=== PATIENT | female | born 1950 | race African-American/Black ===

== ENCOUNTER 2016-04-14 14:22 | Emergency (ER) | payer OTHER ==
[~2016-04-14] VITALS: Ht 157.5 cm; Wt 76.5 kg
[~2016-04-14 14:22] MED LIST: ACIP20TA19 PO; ASPI81TA11 OR; CYCL5TAB PO; GLUCTAB PO; HYDR-3533 PO; HYDR12.56 PO; LISI-363 PO; PRAV40TA2
[2016-04-14 14:34] VITALS: BP 136/78; PULSE 92; RESP 16; TEMP 98.6; O2SAT 97
[2016-04-14] MEDS ORDERED: LISI-515 PO (15:29)
[2016-04-14] MEDS ORDERED: OMEP20TA PO (15:29)
[2016-04-14] MEDS ORDERED: METF-382 PO (15:29)
[2016-04-14] MEDS ORDERED: ASPI1TAB69 PO (15:29)
[2016-04-14] MEDS ORDERED: HYDR12.56 PO (15:29)
[2016-04-14] MEDS ORDERED: PRAV40TA2 PO (15:29)
[2016-04-14] MEDS ORDERED: IBUPROFEN 800 MG TAB PO ONE (15:30)
--- NOTE | 2016-04-14 15:32 | PD ---
HPI Chief Complaint: Pain: Acute or Chronic Time Seen by Provider: 15:30 Travel History International Travel<30 days: No Contact w/Intl Traveler<30days: No Traveled to known affect area: No History of Present Illness HPI Patient is a 65-year-old female who presents to the emergency for evaluation of right foot pain. Patient states the pain is been ongoing for 2 days. She denies any defining injury or trauma but states she is on her feet all day. Patient states the pain is 6 out of 10 and describes it as sore. She states the pain radiates from her toes to her mid foot dorsally. She denies any fevers , chills, redness, warmth. She does state that her foot is swollen and tender to the touch. PFSH Past Medical History Hx Anticoagulant Therapy: No Heart Rhythm Problems: No Cardiac Catheterization: No High Cholesterol: Yes Congestive Heart Failure: No Diabetes: Yes Patient Takes Glucophage: Yes Diminished Hearing: No GERD: Yes Heparin Induced Thrombocytopen: No Hypertension: Yes Musculoskeletal: Yes (OSTEOPOROSIS) Tetanus Vaccination: Unknown ?: Not : 2 Para: 2 Past Surgical History Appendectomy: Yes Section: Yes Coronary Artery Bypass Graft: No Hysterectomy: Yes Family History Family Myocardial Infarction: Yes Social History Alcohol Use: No Tobacco Use: No Substance Use: No Allergies-Medications (Allergen,Severity, Reaction): Coded Allergies: Sulfa (Verified Allergy, Mild, ITCHING, 04/14/16) Reported Meds & Prescriptions Reported Meds & Active Scripts Active Reported Pravastatin 40 Mg Tab 40 Mg PO DAILY Metformin ER (Metformin HCl) 1,000 Mg Jeison 1,000 Mg PO DAILY With evening meal Hydrochlorothiazide 12.5 Mg Tab 12.5 Mg PO DAILY Lisinopril 20 Mg Tab 20 Mg PO DAILY Omeprazole 20 Mg Tab 20 Mg PO DAILY Aspirin 81 Mg Tabdr 81 Mg PO DAILY Review of Systems Except as stated in HPI: all other systems reviewed are Neg Musculoskeletal: Positive: Myalgias, Arthralgias, Edema, Pain Physical Exam Narrative GENERAL: Well-nourished, well-developed patient. SKIN: Warm and dry. HEAD: Normocephalic. EYES: No scleral icterus. No injection or drainage. NECK: Supple, trachea midline. No JVD or lymphadenopathy. CARDIOVASCULAR: Regular rate and rhythm without murmurs, gallops, or rubs. RESPIRATORY: Breath sounds equal bilaterally. No accessory muscle use. GASTROINTESTINAL: Abdomen soft, non-tender, nondistended. MUSCULOSKELETAL: No cyanosis, edema noted to the dorsal aspect of the right foot from the toes to the mid foot. Full range of motion in right foot and toes. Positive pedal pulses, brisk less than 3 second capillary refill. No obvious deformities noted. No warmth or erythema noted. BACK: Nontender without obvious deformity. No CVA tenderness. Data Data Last Documented VS Vital Signs Date Time Temp Pulse Resp B/P Pulse Ox O2 Delivery O2 Flow Rate FiO2 04/14/16 14:34 98.6 92 16 136/78 97 Orders Foot, Complete ([id number]) (04/14/16 ) Ibuprofen (Motrin) (04/14/16 15:30) [facility] Medical Decision Making Medical Screen Exam Complete: Yes Emergency Medical Condition: Yes Interpretation(s) Vital Signs Date Time Temp Pulse Resp B/P Pulse Ox O2 Delivery O2 Flow Rate FiO2 04/14/16 14:34 98.6 92 16 136/78 97 Differential Diagnosis Gouty arthropathy versus arthritis versus strain versus sprain versus other Narrative Course Patient is a 65 year old female who presented to emergency for evaluation of right foot pain. Patient had no injury or trauma, there is mild edema noted over the dorsal aspect. Patient is neurovascularly intact. Imaging ordered rule out acute abnormality. Patient has been ambulating on her foot, imaging is negative or acute fracture or dislocation, but does show hypertrophic changes. She will be given anti-inflammatory medication. She is encouraged to follow-up with her primary doctor. She is occurs return to emergency department for any new or worsening symptoms. Patient is stable for discharge. Diagnosis Primary Impression: Strain of foot Qualified Code: S96.911A - Strain of foot, right, initial encounter Referrals: Primary Care Physician Patient Instructions: General Instructions, Muscle Strain (ED) Additional Instructions: Follow-up with your primary doctor Take medications as directed Alternate heat and ice to affected area, elevate extremity Med/Other Pt SpecificInfo: Prescription(s) given Scripts Ibuprofen 600 Mg [id number] Mg PO Q8HR PRN (PAIN) 10 Days Ref 0 Prov:Sumi Middleton 04/14/16 Disposition: 01 DISCHARGE HOME Condition: Stable Sumi Middleton Apr 14, 2016 15:32
--- NOTE | 2016-04-14 16:55 | RADHPO ---
EXAM DATE/TIME: 04/14/2016 16:10 [facility] COMPARISON: No previous studies available for comparison. INDICATIONS : Right foot pain and swelling, no known injury MEDICAL HISTORY : Diabetes mellitus type II. SURGICAL HISTORY : None. ENCOUNTER: Initial ACUITY: 2 days PAIN SCORE: 8/10 LOCATION: Right foot FINDINGS: No fracture is seen. There is very prominent hypertrophic change at the posterior calcaneus at the A chilles attachment site. There is a smaller calcaneal spur at the plantar aponeurosis attachment sit e. There is hypertrophic change at the dorsal midfoot between the navicular bone and the cuneiform b ones. There is some hypertrophic change seen adjacent to the lateral aspect of the cuboid. CONCLUSION: Very prominent hypertrophic change. Basilio Brown MD on April 14, 2016 at 16:23 Board Certified Radiologist. This report was verified electronically.
[2016-04-14] MEDS ORDERED: IBUP-232 PO (17:01)
== END 2016-04-14 17:44 | disposition home or self-care (01) ==
LOC: PHEFT 14:22
DX: S96.911A Strain of unspecified muscle and tendon at ankle and foot level, right foot, initial encounter (principal); R60.0 Localized edema; I10 Essential (primary) hypertension; E11.9 Type 2 diabetes mellitus without complications; E78.00 Pure hypercholesterolemia, unspecified; Z79.84 Long term (current) use of oral hypoglycemic drugs; Z87.19 Personal history of other diseases of the digestive system; Z87.39 Personal history of other diseases of the musculoskeletal system and connective tissue
CPT/HCPCS: 73630; 99283

== ENCOUNTER 2016-07-01 22:16 | Emergency (ER) | payer OTHER ==
[~2016-07-01] VITALS: Ht 170.2 cm; Wt 76.0 kg
[~2016-07-01 22:16] MED LIST changes: -ACIP20TA19 PO; +ASPI1TAB69 PO; -ASPI81TA11 OR; -CYCL5TAB PO; -GLUCTAB PO; -HYDR-3533 PO; +IBUP-232 PO; -LISI-363 PO; +LISI-515 PO; +METF-382 PO; +OMEP20TA PO; -PRAV40TA2; +PRAV40TA2 PO
[2016-07-01 22:19] VITALS: BP 182/82; PULSE 100; RESP 16; TEMP 98; O2SAT 98
[2016-07-02] MEDS ORDERED: PROPARACAINE HCL 0.5% OPHT SOLN 15 ML BTL LEFT EYE ONE (00:15)
[2016-07-02] MEDS ORDERED: POLYMYXIN/TRIMETHOPRIM OPHT SOLN 10 ML BTL LEFT EYE ONE (00:30)
[2016-07-02] MEDS ORDERED: GUAISYP4 PO (00:42)
[2016-07-02] MEDS ORDERED: ZITHTAB PO (00:42)
--- NOTE | 2016-07-02 00:53 | PD ---
HPI Chief Complaint: left eye redness and drainage Time Seen by Provider: 23:49 Travel History International Travel<30 days: No Contact w/Intl Traveler<30days: No Traveled to known affect area: No History of Present Illness HPI This is a 66-year-old female history of hypertension, who presents today for complaints of red eye and drainage from her left eye. The patient works in our operating room and was told to come down here and be evaluated for possible pinkeye. The patient denies any foreign body but does state that became itchy 2 days ago and then she's noticed that the eye has become red and has purulent drainage. She denies any fevers, chills. She was noted to have elevated blood pressure but denies any headache, dizziness, chest pain, chest pressure. Patient also reports she's had upper respiratory infection for which she wanted to see her primary care doctor but has not as of yet. She reports postnasal drainage with cough and congestion she reports productive cough with yellow- green phlegm. PFSH Past Medical History Medical History: Denies Significant Hx Hx Anticoagulant Therapy: No Heart Rhythm Problems: No Cardiac Catheterization: No High Cholesterol: Yes Congestive Heart Failure: No Diabetes: Yes Patient Takes Glucophage: Yes Diminished Hearing: No GERD: Yes Heparin Induced Thrombocytopen: No Hypertension: Yes Musculoskeletal: Yes (OSTEOPOROSIS) : 2 Para: 2 Past Surgical History Appendectomy: Yes Section: Yes Coronary Artery Bypass Graft: No Hysterectomy: Yes Family History Family Myocardial Infarction: Yes Social History Alcohol Use: No Tobacco Use: No Substance Use: No Allergies-Medications (Allergen,Severity, Reaction): Coded Allergies: Sulfa (Verified Allergy, Mild, ITCHING, 04/14/16) Reported Meds & Prescriptions Reported Meds & Active Scripts Active Zithromax Z-Hiren (Azithromycin) 250 Mg Dspk 250 Mg PO DIRECTED 500 MG (2 tabs) day 1, then 1 tab days 2-5. Guaifenesin AC Liq (Guaifenesin-Codeine Liq) 100-10 Mg/5 Ml Syrp 10 Ml PO Q6H PRN Ibuprofen 600 Mg Tab 600 Mg PO Q8HR PRN 10 Days Reported Pravastatin 40 Mg Tab 40 Mg PO DAILY Metformin ER (Metformin HCl) 1,000 Mg Jeison 1,000 Mg PO DAILY With evening meal Hydrochlorothiazide 12.5 Mg Tab 12.5 Mg PO DAILY Lisinopril 20 Mg Tab 20 Mg PO DAILY Omeprazole 20 Mg Tab 20 Mg PO DAILY Aspirin 81 Mg Tabdr 81 Mg PO DAILY Review of Systems Except as stated in HPI: all other systems reviewed are Neg General / Constitutional: No: Fever, Chills Eyes: Positive: Drainage (left eye drainage and redness) HENT: No: Headaches, Lightheadedness, Neck Pain Cardiovascular: No: Chest Pain or Discomfort, Palpitations, Irregular Rhythm Respiratory: Positive: Cough (productive yellow-green), No: Shortness of Breath, Wheezing Gastrointestinal: No: Nausea, Vomiting Genitourinary: No: Urgency, Frequency, Dysuria Physical Exam Narrative GENERAL: Well-developed well-nourished female in no acute respiratory distress. HEAD: Atraumatic. Normocephalic. EYES: Pupils equal and round. Left eye shows redness in the conjunctiva. There is some purulent white drainage noted in the corners of the eyes. On fluorescein staining, there is no uptake or evidence of abrasion. Right eye was clear without redness or drainage. ENT: No nasal bleeding or discharge. Mucous membranes pink and moist. NECK: Trachea midline. No JVD. Supple CARDIOVASCULAR: Regular rate and rhythm. No murmur appreciated. RESPIRATORY: No accessory muscle use. Breath sounds equal with coarse rhonchi in the upper airways bilaterally. No Rales appreciated. NEUROLOGICAL: Awake and alert. No obvious cranial nerve deficits. Motor grossly within normal limits. Normal speech. Data Data Last Documented VS Vital Signs Date Time Temp Pulse Resp B/P Pulse Ox O2 Delivery O2 Flow Rate FiO2 07/01/16 22:19 98.0 100 16 182/82 98 Orders Proparacaine 0.5% Opth Soln (Alcaine 0.5 (07/02/16 00:15) Polymyxin/Trimethop Opht Soln (Polytrim (07/02/16 00:30) Guaifenesin Liq (Robitussin Liq) (07/02/16 01:00) [facility] [place] Medical Decision Making Medical Screen Exam Complete: Yes Emergency Medical Condition: Yes Differential Diagnosis Viral versus bacterial conjunctivitis. Bronchitis Narrative Course 66 year old female who works here at [employer] was sent down for evaluation of left eye drainage and redness. The patient appears to have conjunctivitis. She'll be treated with polymyxin drops. She also be given 1 dose of cough Anacin. She'll be given a prescription for guaifenesin for the cough. She also be given a prescription for azithromycin for bronchitis. She is instructed not to return to work until the redness and drainage resolves. Diagnosis Primary Impression: Conjunctivitis, left eye Additional Impression: Bronchitis Additional Instructions: Do not return to work until the redness and drainage has resolved from the eye. Keep an eye on her blood pressure and if it continues to say elevated, follow up with her primary care physician. Eyedrops 1 drop to left eye every 6 hours 7 days. Scripts Azithromycin (Zithromax Z-Hiren)250 Mg [id number] Mg PO DIRECTED #1 DSPK Ref 0 500 MG (2 tabs) day 1, then 1 tab days 2-5. Prov:Wisam Basurto MD 07/02/16 Guaifenesin-Codeine Liq (Guaifenesin AC Liq)100-10 Mg/5 Ml Syrp10 Ml PO Q6H PRN (COUGH) #1 BOTTLE Ref 0 Prov:Wisam Basurto MD 07/02/16 Disposition: 01 DISCHARGE HOME Condition: Stable Wisam Basurto MD Jul 02, 2016 00:53
[2016-07-02] MEDS ORDERED: guaiFENesin SOLUTION 200 MG/10 ML CUP PO ONE (01:00)
== END 2016-07-02 01:35 | disposition home or self-care (01) ==
LOC: NEPE 22:16
DX: H10.9 Unspecified conjunctivitis (principal); J40 Bronchitis, not specified as acute or chronic
CPT/HCPCS: 99283

== ENCOUNTER → 2016-10-11 | Outpatient (CLI) | payer OTHER ==
[~2016-10-11] MED LIST changes: +GUAISYP4 PO; +ZITHTAB PO
[2016-10-11 07:11] LABS: HEMATOCRIT 34.5 % (35.0-46.0); MEAN CORPUSCULAR HEMOGLOBIN 25.6 PG (27.0-34.0); MEAN CORPUSCULAR HGB CONC 32.9 % (32.0-36.0); PLATELET COUNT 249 TH/MM3 (150-450); RED BLOOD COUNT 4.42 MIL/MM3 (4.00-5.30); RED CELL DISTRIBUTION WIDTH 15.9 % (11.6-17.2); REVIEW FLAG FINAL; WHITE BLOOD COUNT 6.7 TH/MM3 (4.0-11.0)
[2016-10-11 07:35] LABS: ANION GAP 8 MEQ/L (5-15); AST (GOT) 20 U/L (15-37); BICARBONATE 28.4 MEQ/L (21.0-32.0); BLOOD UREA NITROGEN 23 MG/DL (7-18); CHLORIDE 103 MEQ/L (98-107); GLOMERULAR FILTRATION RATE 99 ML/MIN (>89); GLUCOSE,FASTING 92 MG/DL (74-99); POTASSIUM 3.6 MEQ/L (3.5-5.1); SODIUM (NA) 139 MEQ/L (136-145)
[2016-10-11 07:36] LABS: ALT (GPT) 26 U/L (10-53)
[2016-10-11 07:45] LABS: ALKALINE PHOSPHATASE 160 U/L (45-117); HDL CHOLESTEROL 47.1 MG/DL (40.0-60.0); LDL CHOLESTEROL 122 MG/DL (0-99); TOTAL BILIRUBIN ADULT 0.3 MG/DL (0.2-1.0)
[2016-10-11 16:19] LABS: HEMOGLOBIN A1a 1.3 %; HEMOGLOBIN A1b 1.1 %; HEMOGLOBIN F 1.4 %; HEMOGLOBIN P3 4.3 %
== END ==
LOC: CLAB 06:47
PROVIDERS: ATTEND Family Medicine
DX: R53.83 Other fatigue (principal); E11.9 Type 2 diabetes mellitus without complications; E78.9 Disorder of lipoprotein metabolism, unspecified
CPT/HCPCS: 36415; 80053; 80061; 83036; 84443; 85027

== ENCOUNTER 2017-08-01 11:32 | Emergency (ER) | payer OTHER ==
[~2017-08-01] VITALS: Ht 154.9 cm; Wt 75.6 kg
[~2017-08-01 11:32] MED LIST changes: -OMEP20TA PO; +OMEP20TA93 PO
[2017-08-01 11:43] VITALS: BP 174/77; PULSE 72; RESP 18; TEMP 98.6; O2SAT 97
[2017-08-01] MEDS ORDERED: PANT40TA3 PO (11:59)
[2017-08-01] MEDS ORDERED: ASPI81CH6 CHEW (11:59)
--- NOTE | 2017-08-01 12:05 | PD ---
HPI Chief Complaint: Flank/Kidney Pain Time Seen by Provider: 11:52 Travel History International Travel<30 days: No Contact w/Intl Traveler<30days: No Traveled to known affect area: No History of Present Illness HPI This 67-year-old female is complaining of right flank pain. The pain started 2 days ago. It does come and go but is quite severe at times. She has not noted any dysuria or any blood in the urine. She has not noted any fever. She has not had pain like this before. She does have a history of hypertension. She has not tried any pain medication yet. Pain seems a little better when she walks around a bit. PFSH Past Medical History Hx Anticoagulant Therapy: No Heart Rhythm Problems: No Cardiac Catheterization: No Cardiovascular Problems: Yes (HTN, CHOL) High Cholesterol: Yes Congestive Heart Failure: No Diabetes: Yes Patient Takes Glucophage: Yes Diminished Hearing: No GERD: Yes Heparin Induced Thrombocytopen: No Hypertension: Yes Musculoskeletal: Yes (OSTEOPOROSIS) Tetanus Vaccination: Unknown Influenza Vaccination: Yes ?: Not : 2 Para: 2 Past Surgical History Appendectomy: Yes Section: Yes (X's 2) Coronary Artery Bypass Graft: No Hysterectomy: Yes Family History Family Myocardial Infarction: Yes Social History Alcohol Use: No Tobacco Use: No Substance Use: No Allergies-Medications (Allergen,Severity, Reaction): Coded Allergies: Sulfa (Sulfonamide Antibiotics) (Unverified Allergy, Mild, ITCHING, ) Reported Meds & Prescriptions Reported Meds & Active Scripts Active Reported Pantoprazole (Pantoprazole Sodium) 40 Mg Tab 40 Mg PO DAILY Aspirin Low Dose (Aspirin) 81 Mg Chew 81 Mg CHEW DAILY Pravastatin 40 Mg Tab 40 Mg PO DAILY Metformin ER (Metformin HCl) 1,000 Mg Jeison 1,000 Mg PO DAILY With evening meal Hydrochlorothiazide 12.5 Mg Tab 25 Mg PO DAILY Lisinopril 20 Mg Tab 40 Mg PO DAILY Review of Systems General / Constitutional: No: Fever, Chills Eyes: No: Diploplia, Blurred Vision HENT: No: Headaches, Vertigo Cardiovascular: No: Chest Pain or Discomfort, Palpitations Respiratory: No: Cough, Shortness of Breath Gastrointestinal: No: Nausea, Vomiting Genitourinary: Positive: Flank Pain, No: Urgency, Frequency Musculoskeletal: No: Myalgias, Arthralgias Skin: No Rash, No Itching Neurologic: No: Weakness, Dizziness Endocrine: No: Heat Intolerance, Cold Intolerance Hematologic/Lymphatic: No: Easy Bruising Physical Exam Narrative GENERAL: Well-developed female. She does appear uncomfortable with her pain SKIN: Focused skin assessment warm/dry. HEAD: Atraumatic. Normocephalic. EYES: Pupils equal and round. No scleral icterus. No injection or drainage. ENT: No nasal bleeding or discharge. Mucous membranes pink and moist. NECK: Trachea midline. No JVD. CARDIOVASCULAR: Regular rate and rhythm. No murmur appreciated. RESPIRATORY: No accessory muscle use. Clear to auscultation. Breath sounds equal bilaterally. GASTROINTESTINAL: Abdomen soft, non-tender, nondistended. Hepatic and splenic margins not palpable. There is right CVA tenderness MUSCULOSKELETAL: No obvious deformities. No clubbing. No cyanosis. No edema. NEUROLOGICAL: Awake and alert. No obvious cranial nerve deficits. Motor grossly within normal limits. Normal speech. PSYCHIATRIC: Appropriate mood and affect; insight and judgment normal. Data Data Last Documented VS Vital Signs Date Time Temp Pulse Resp B/P (MAP) Pulse Ox O2 Delivery O2 Flow Rate FiO2 08/01/17 13:10 64 18 173/85 (114) 100 Room Air 08/01/17 11:43 98.6 Orders Orders Complete Blood Count With Diff (08/01/17 12:01) Comprehensive Metabolic Panel (08/01/17 12:01) Urinalysis - C+S If Indicated (08/01/17 12:01) Ct Abd/Pel W/O Iv Contrast (08/01/17 12:01) Sodium Chlor 0.9% 1000 Ml Inj (Ns 1000 M (08/01/17 12:15) Ketorolac Inj (Toradol Inj) (08/01/17 12:15) Acetamin-Hydrocod 325-5 Mg ([place] 5-325 (08/01/17 13:00) Potassium Chloride (Kcl) (08/01/17 13:00) Urine Culture (08/01/17 12:00) Labs Laboratory Tests Test 08/01/17 12:00 08/01/17 12:10 Urine Collection Type CLEAN CATCH Urine Color YELLOW Urine Turbidity CLEAR Urine pH 5.5 Urine Specific Tripp 1.025 Urine Protein NEG mg/dL Urine Glucose (UA) NEG mg/dL Urine Ketones NEG mg/dL Urine Occult Blood NEG Urine Nitrite NEG Urine Bilirubin NEG Urine Urobilinogen 0.2 MG/DL Urine Leukocyte Esterase SMALL Urine RBC 0-3 /hpf Urine WBC 9-14 /hpf Urine WBC Clumps OCC Urine Squamous Epithelial Cells 6-8 /hpf Microscopic Urinalysis Comment CULTURE INDICATED Urine Collection Time 12:00 White Blood Count 5.2 TH/MM3 Red Blood Count 4.47 MIL/MM3 Hemoglobin 11.7 GM/DL Hematocrit 35.2 % Mean Corpuscular Volume 78.8 FL Mean Corpuscular Hemoglobin 26.1 PG Mean Corpuscular Hemoglobin Concent 33.2 % Red Cell Distribution Width 14.5 % Platelet Count 244 TH/MM3 Mean Platelet Volume 7.2 FL Neutrophils (%) (Auto) 61.7 % Lymphocytes (%) (Auto) 26.9 % Monocytes (%) (Auto) 8.7 % Eosinophils (%) (Auto) 2.1 % Basophils (%) (Auto) 0.6 % Neutrophils # (Auto) 3.2 TH/MM3 Lymphocytes # (Auto) 1.4 TH/MM3 Monocytes # (Auto) 0.4 TH/MM3 Eosinophils # (Auto) 0.1 TH/MM3 Basophils # (Auto) 0.0 TH/MM3 CBC Comment DIFF FINAL Differential Comment Blood Urea Nitrogen 15 MG/DL Creatinine 0.60 MG/DL Random Glucose 101 MG/DL Total Protein 7.4 GM/DL Albumin 3.5 GM/DL Calcium Level 8.8 MG/DL Alkaline Phosphatase 149 U/L Aspartate Amino Transf (AST/SGOT) 17 U/L Alanine Aminotransferase (ALT/SGPT) 27 U/L Total Bilirubin 0.2 MG/DL Sodium Level 139 MEQ/L Potassium Level 3.3 MEQ/L Chloride Level 106 MEQ/L Carbon Dioxide Level 29.6 MEQ/L Anion Gap 3 MEQ/L Estimat Glomerular Filtration Rate 120 ML/MIN [facility] Medical Decision Making Medical Screen Exam Complete: Yes Emergency Medical Condition: Yes Medical Record Reviewed: Yes Differential Diagnosis Differential includes musculoskeletal pain, renal colic, pyelonephritis Narrative Course CT does not show hydronephrosis or stone. Urine does show urinary tract infection of 9-14 white cells. I doubt this is the cause of her pain. I suspect it is musculoskeletal pain possibly aggravated by her potassium of 3.3 Diagnosis Primary Impression: Musculoskeletal pain Additional Impression: UTI (urinary tract infection) Scripts Ciprofloxacin (Cipro) 500 Mg Tab 500 MG PO BID for Infection for 7 Days, #14 TAB 0 Refills Prov: Chris Field MD 08/01/17 Hydrocodone-Acetaminophen ([place]) 7.5-325 mg Tab 1 TAB PO Q4H Y for PAIN for 12 Days, #72 TAB 0 Refills Prov: Chris Field MD 08/01/17 Disposition: 01 DISCHARGE HOME Condition: Stable Chris Field MD August 01, 2017 12:05
[2017-08-01] MEDS ORDERED: KETOROLAC TROMETHAMINE 30 MG/ML (IVP) VIAL IV PUSH ONE (12:15)
[2017-08-01] MEDS ORDERED: SODIUM CHLOR 0.9% 1000 ML INJ 1,000 ML IV ONE (12:15)
[2017-08-01 12:29] LABS: BILIRUBIN, URINE NEG (NEG); BLOOD, URINE NEG (NEG); GLUCOSE,URINE NEG (NEG); KETONE, URINE NEG (NEG); NITRITE,URINE NEG (NEG); PH, URINE 5.5 (5.0-8.5); URINE COLOR YELLOW (YELLW/STRAW); URINE LEUKOCYTE ESTERASE SMALL (NEG)
[2017-08-01 12:38] LABS: AUTOMATED NEUTROPHIL # 3.2 TH/MM3 (1.8-7.7); BASOPHIL % 0.6 % (0.0-2.0); EOSINOPHIL # 0.1 TH/MM3 (0-0.4); EOSINOPHIL % 2.1 % (0.0-4.0); HEMATOCRIT 35.2 % (35.0-46.0); HEMOGLOBIN 11.7 GM/DL (11.6-15.3); LYMPH % 26.9 % (9.0-44.0); LYMPHOCYTE # 1.4 TH/MM3 (1.0-4.8); MEAN CELL VOLUME 78.8 FL (80.0-100.0); MEAN CORPUSCULAR HEMOGLOBIN 26.1 PG (27.0-34.0); MEAN CORPUSCULAR HGB CONC 33.2 % (32.0-36.0); MEAN PLATELET VOLUME 7.2 FL (7.0-11.0); MONO % 8.7 % (0.0-8.0); MONOCYTE # 0.4 TH/MM3 (0-0.9); NEUT % 61.7 % (16.0-70.0); PLATELET COUNT 244 TH/MM3 (150-450); RED BLOOD COUNT 4.47 MIL/MM3 (4.00-5.30); RED CELL DISTRIBUTION WIDTH 14.5 % (11.6-17.2); WHITE BLOOD COUNT 5.2 TH/MM3 (4.0-11.0)
[2017-08-01 12:43] LABS: CHLORIDE 106 MEQ/L (98-107); SODIUM (NA) 139 MEQ/L (136-145)
[2017-08-01 12:46] LABS: CALCIUM 8.8 MG/DL (8.5-10.1)
[2017-08-01 12:47] LABS: ALBUMIN 3.5 GM/DL (3.4-5.0); BICARBONATE 29.6 MEQ/L (21.0-32.0); BLOOD UREA NITROGEN 15 MG/DL (7-18); GLUCOSE,RANDOM 101 MG/DL (74-106)
--- NOTE | 2017-08-01 12:47 | RADRPT ---
EXAM DATE/TIME: 08/01/2017 12:13 [facility] COMPARISON: No previous studies available for comparison. INDICATIONS : Right flank pain. ORAL CONTRAST: No oral contrast ingested. RADIATION DOSE: 9.37 CTDIvol (mGy) MEDICAL HISTORY : Gastroesophageal reflux disease. Diabetes mellitus type 2. Hypercholesterolemia.Hypertension. SURGICAL HISTORY : Hysterectomy. Appendectomy. section. ENCOUNTER: Initial ACUITY: 2 days PAIN SCALE: 10/10 LOCATION: Right flank TECHNIQUE: Volumetric scanning of the abdomen and pelvis was performed. Using automated exposure control and ad justment of the mA and/or kV according to patient size, radiation dose was kept as low as reasonably achievable to obtain optimal diagnostic quality images. DICOM format image data is available electro nically for review and comparison. FINDINGS: LOWER LUNGS: The visualized lower lungs are clear. LIVER: Visualized portions are grossly unremarkable. SPLEEN: Visualized portions grossly unremarkable PANCREAS: Within normal limits. KIDNEYS: Normal in size and shape. There is no mass, stone, or hydronephrosis. ADRENAL GLANDS: Within normal limits. VASCULAR: There is no aortic aneurysm. BOWEL/MESENTERY: The stomach, small bowel, and colon demonstrate no acute abnormality. There is no free intraperitone al air or fluid. ABDOMINAL WALL: Small fat containing periumbilical hernias just left of midline. RETROPERITONEUM: There is no lymphadenopathy. BLADDER: No wall thickening or mass. REPRODUCTIVE: Uterus surgically absent. No evidence of pelvic mass or free fluid. INGUINAL: There is no lymphadenopathy or hernia. MUSCULOSKELETAL: Within normal limits for patient age. CONCLUSION: No acute CT findings. No evidence of nephrolithiasis or hydronephrosis Basilio Calix MD on August 01, 2017 at 12:27 Board Certified Radiologist. This report was verified electronically.
[2017-08-01 12:50] LABS: ALT (GPT) 27 U/L (10-53); AST (GOT) 17 U/L (15-37); GLOMERULAR FILTRATION RATE 120 ML/MIN (>89)
[2017-08-01 12:51] LABS: TOTAL BILIRUBIN ADULT 0.2 MG/DL (0.2-1.0); TOTAL PROTEIN 7.4 GM/DL (6.4-8.2)
[2017-08-01 12:53] LABS: ALKALINE PHOSPHATASE 149 U/L (45-117)
[2017-08-01] MEDS ORDERED: ACETAMINOPHEN/HYDROcodone 325 MG/5 MG TAB PO ONE (13:00)
[2017-08-01] MEDS ORDERED: POTASSIUM CHLORIDE 20 MEQ CONTROLLED RELEASE TAB PO ONE (13:00)
[2017-08-01 13:05] LABS: RBC, URINE 0-3 /hpf (0-3); WHITE BLOOD CELL CLUMPS OCC
[2017-08-01 13:10] VITALS: BP 173/85; PULSE 64; RESP 18; O2SAT 100
[2017-08-01] MEDS ORDERED: CIPR-9 PO (13:25)
[2017-08-01] MEDS ORDERED: HYDR-3288 PO (13:25)
[2017-08-01] MEDS ORDERED: CIPROFLOXACIN 500 MG TAB PO ONE (13:30)
[2017-08-01 14:10] VITALS: RESP 14
== END 2017-08-01 14:25 | disposition home or self-care (01) ==
LOC: PHED 11:32
DX: M79.1 Myalgia (principal); N39.0 Urinary tract infection, site not specified; I10 Essential (primary) hypertension; E78.00 Pure hypercholesterolemia, unspecified; E11.9 Type 2 diabetes mellitus without complications; K21.9 Gastro-esophageal reflux disease without esophagitis; M81.0 Age-related osteoporosis without current pathological fracture
CPT/HCPCS: 74176; 80053; 81001; 85025; 87086; 96361; 96374; 99284; J1885; J7030